=== PATIENT | male | born 1950 | race Caucasian/White ===

== ENCOUNTER 2018-02-27 18:48 | Emergency (ER) | payer MEDICARE, OTHER ==
[2018-02-27] MEDS ORDERED: DEXAMETHASONE 4 MG TABLET PO ONE (19:07)
--- NOTE | 2018-02-27 19:08 | ER Document Report ---
ED General - General Chief Complaint: Allergic Reaction Stated Complaint: POISSIBLE ALLERGIC REACTIONS Time Seen by Provider: 02/27/18 18:56 Notes: Patient is a 67-year-old male who presents with areas of multiple bee stings. This occurred just prior to arrival. The patient reports things to his bilateral elbows, bilateral hands and his lower abdomen. He took 50 mg of oral Benadryl but denies any significant improvement in the throbbing, aching, stinging pain to the affected areas. Nothing worsens the pain. He denies any associated shortness of breath, nausea, vomiting, lightheadedness or syncope. He does arrive by EMS. He has not discussed with his general doctor. He denies any history of severe allergic reactions to bee stings in the past. TRAVEL OUTSIDE OF THE [place] IN LAST 30 DAYS: No Past Medical History - General Information source: Patient - Social History Smoking Status: Never Smoker Frequency of alcohol use: None Drug Abuse: None Family History: Reviewed & Not Pertinent Review of Systems - Review of Systems Notes: Constitutional: Negative for fever. HENT: Negative for sore throat. Eyes: Negative for visual changes. Cardiovascular: Negative for chest pain. Respiratory: Negative for shortness of breath. Gastrointestinal: Negative for abdominal pain, vomiting or diarrhea. Genitourinary: Negative for dysuria. Musculoskeletal: Negative for back pain. Skin: Positive for multiple areas of bee stings and associated localized urticarial reaction Neurological: Negative for headaches, weakness or numbness. 10 point ROS negative except as marked above and in HPI. Physical Exam - Vital signs Vitals: Temp Pulse Resp BP Pulse Ox 99.2 F 102 H 16 126/61 H 98 02/27/18 18:58 02/27/18 18:58 02/27/18 18:58 02/27/18 18:58 02/27/18 18:58 Interpretation: Tachycardic Notes: PHYSICAL EXAMINATION: GENERAL: Well-appearing, well-nourished and in no acute distress. HEAD: Atraumatic, normocephalic. EYES: Pupils equal round and reactive to light, extraocular movements intact, sclera anicteric, conjunctiva are normal. ENT: nares patent, oropharynx clear without exudates. Moist mucous membranes. NECK: Normal range of motion, supple without lymphadenopathy LUNGS: Breath sounds clear to auscultation bilaterally and equal. No wheezes rales or rhonchi. HEART: Regular rate and rhythm without murmurs ABDOMEN: Soft, nontender, normoactive bowel sounds. No guarding, no rebound. No masses appreciated. EXTREMITIES: Normal range of motion, no pitting or edema. No cyanosis. NEUROLOGICAL: No focal neurological deficits. Moves all extremities spontaneously and on command. PSYCH: Normal mood, normal affect. SKIN: Warm, Dry, normal turgor, multiple areas of bee stings on the bilateral dorsums of the hands, bilateral elbows, left lower abdomen that are raised consistent with local areas of urticaria Course - Re-evaluation Re-evalutation: 02/27/18 19:05 Patient presents with symptoms consistent with localized cutaneous reactions to bee stings without an associated anaphylactic or systemic allergic reaction. Only cutaneous involvement with multiple areas of hives. Vitals otherwise within normal limits at time of arrival. No respiratory, GI, cardiovascular, or oral pharyngeal symptoms. Will recommend ongoing antihistamine therapy as an outpatient. At this time will discharge with return precautions and follow-up recommendations. Verbal discharge instructions given a the bedside and opportunity for questions given. Medication warnings reviewed. Patient is in agreement with this plan and has verbalized understanding of return precautions and the need for primary care follow-up in the next 24-72 hours. - Vital Signs Vital signs: Temp Pulse Resp BP Pulse Ox 99.2 F 94 16 154/73 H 94 02/27/18 18:58 02/27/18 20:00 02/27/18 20:00 02/27/18 20:00 02/27/18 20:00 Discharge - Discharge Clinical Impression: Bee sting Qualifiers: Encounter type: initial encounter Injury intent: accidental or unintentional Qualified Code(s): T63.441A - Toxic effect of venom of bees, accidental ( unintentional), initial encounter Bee sting reaction Qualifiers: Encounter type: initial encounter Injury intent: accidental or unintentional Qualified Code(s): T63.441A - Toxic effect of venom of bees, accidental ( unintentional), initial encounter Condition: Good Disposition: HOME, SELF-CARE Additional Instructions: You were seen today for local reactions to bee stings. You can continue to take cetirizine 10mg up to 3 times daily as needed for skin irritation. Apply the topical steroid cream that has been prescribed as needed for severe discomfort or pain to the affected areas. IF YOU DEVELOP DIFFICULTY BREATHING, SPREADING OF HIVES, VOMITING, LIGHTHEADEDNESS, IMMEDIATELY AND CALL 911. Please follow-up with your primary care physician in the next 1-2 days. Prescriptions: Triamcinolone Acetonide 80 gm TP TID #80 cream.gm. Referrals: LOCALMD,NO [NO LOCAL MD] - Follow up as needed
[2018-02-27 20:02] VITALS: BP 154/73
== END 2018-02-27 20:03 | disposition home or self-care (01) ==
LOC: ER 18:48
DX: T63.441A Toxic effect of venom of bees, accidental (unintentional), initial encounter (principal)
CPT/HCPCS: 99283; A9270